=== PATIENT | male | born 1950 | race Caucasian/White ===

== ENCOUNTER 2020-01-06 10:25 | Outpatient (REF) | payer OTHER, SELFPAY ==
[2020-01-06 21:22] LABS: Anion Gap 9.9 mmol/L (3-11); BUN 22 mg/dL (7-18); CO2 23.1 mmol/L (21.0-32.0); CREATININE 1.09 mg/dL (0.70-1.30); Calcium 9.1 mg/dL (8.5-10.1); Calculated LDL 160 mg/dL (<100); Chloride 106 mmol/L (98-107); Cholesterol 222 mg/dL (<200); Glucose 102 mg/dL (74-106); HDL Cholesterol 41 mg/dL (40-60); Potassium 4.3 mmol/L (3.5-5.1); Sodium 139 mmol/L (136-145); Triglyceride 107 mg/dL (<150)
== END 2020-01-06 10:45 ==
LOC: NCHCN 10:25
PROVIDERS: PCP Family Medicine; Visit Provider Nurse Practitioner Family
DX: E78.5 Hyperlipidemia, unspecified (principal); R73.9 Hyperglycemia, unspecified
CPT/HCPCS: 80048; 80061

== ENCOUNTER 2021-01-11 13:54 | Outpatient (REF) | payer OTHER, SELFPAY ==
[2021-01-11 14:54] LABS: ALT 25 U/L (16-63); AST 13 U/L (15-37); Albumin 3.5 g/dL (3.4-5.0); Alkaline Phosphatase 54 U/L (46-116); Anion Gap 7.2 mmol/L (3-11); BUN 21 mg/dL (7-18); Bilirubin, Total 0.3 mg/dL (0.2-1.0); CO2 27.8 mmol/L (21.0-32.0); CREATININE 1.2 mg/dL (0.70-1.30); Calcium 8.9 mg/dL (8.5-10.1); Chloride 108 mmol/L (98-107); Estimated GFR 59.68 (mL/min/1.73m2); Glucose 108 mg/dL (74-106); Potassium 4.3 mmol/L (3.5-5.1); Sodium 143 mmol/L (136-145); Total Protein 6.4 g/dL (6.4-8.2)
[2021-01-12 10:30] LABS: Lyme Ab w Rflx to Lyme Confirm Negative (Negative)
[2021-01-13 00:18] LABS: Anaplasma phagocytophilum Negative (Negative); B. miyamotoi PCR Negative (Negative); Babesia divergens/MO-1 Negative (Negative); Babesia duncani Negative (Negative); Babesia microti Negative (Negative); Ehrlichia chaffeensis Negative (Negative); Ehrlichia ewingii/canis Negative (Negative); Ehrlichia muris eauclairensis Negative (Negative)
== END 2021-01-11 13:55 | disposition home or self-care (01) ==
LOC: NCHCN 13:54
PROVIDERS: PCP Family Medicine; Visit Provider Nurse Practitioner Family
DX: R97.20 Elevated prostate specific antigen [PSA] (principal); R73.03 Prediabetes; R00.1 Bradycardia, unspecified
CPT/HCPCS: 80053; 84153; 87798; 86618

== ENCOUNTER 2021-04-15 10:09 | Outpatient (REF) | payer OTHER, SELFPAY ==
[2021-04-15 22:24] LABS: PSA, Diagnostic 7.3 ng/mL (0.0-6.5)
== END 2021-04-15 10:10 | disposition home or self-care (01) ==
LOC: LBN 10:09
PROVIDERS: PCP Family Medicine; Visit Provider Urology
DX: R97.20 Elevated prostate specific antigen [PSA] (principal)
CPT/HCPCS: 84153

== ENCOUNTER 2021-09-30 09:53 | Outpatient (REF) | payer OTHER, SELFPAY ==
[2021-10-03 09:41] LABS: PSA, Diagnostic 6.7 ng/mL (<=6.5)
== END 2021-09-30 09:54 | disposition home or self-care (01) ==
LOC: LBN 09:53
PROVIDERS: PCP Family Medicine; Visit Provider Urology
DX: R97.20 Elevated prostate specific antigen [PSA] (principal)
CPT/HCPCS: 84153

== ENCOUNTER 2022-04-06 08:11 | Outpatient (REF) | payer OTHER, SELFPAY ==
[2022-04-07 13:50] LABS: PSA, Diagnostic 6.4 ng/mL (<=6.5)
== END 2022-04-06 08:12 | disposition home or self-care (01) ==
LOC: LBN 08:11
PROVIDERS: PCP Family Medicine; Visit Provider Urology
DX: R97.20 Elevated prostate specific antigen [PSA] (principal)
CPT/HCPCS: 84153

== ENCOUNTER 2022-09-14 11:18 | Outpatient (REF) | payer OTHER, SELFPAY ==
[2022-09-14 17:30] LABS: ALT 42 U/L (16-63); AST 23 U/L (15-37); Albumin 3.8 g/dL (3.4-5.0); Alkaline Phosphatase 61 U/L (46-116); Anion Gap 3.9 mmol/L (3-11); BUN 25 mg/dL (7-18); Bilirubin, Total 0.4 mg/dL (0.2-1.0); CO2 29.1 mmol/L (21.0-32.0); CREATININE 1.3 mg/dL (0.70-1.30); Calcium 9.8 mg/dL (8.5-10.1); Calculated LDL 98 mg/dL (<100); Chloride 106 mmol/L (98-107); Cholesterol 166 mg/dL (<200); Estimated GFR 58.01 (mL/min/1.73m2); Glucose 105 mg/dL (74-106); HDL Cholesterol 56 mg/dL (40-60); Potassium 4.5 mmol/L (3.5-5.1); Sodium 139 mmol/L (136-145); Triglyceride 63 mg/dL (<150)
[2022-09-15 20:52] LABS: PSA, Screening 5.4 ng/mL (<=6.5)
== END 2022-09-14 11:19 | disposition home or self-care (01) ==
LOC: NCHCN 11:18
PROVIDERS: PCP Family Medicine; Visit Provider Nurse Practitioner Family
DX: E78.5 Hyperlipidemia, unspecified (principal); R73.03 Prediabetes; N40.1 Benign prostatic hyperplasia with lower urinary tract symptoms; Z12.5 Encounter for screening for malignant neoplasm of prostate
CPT/HCPCS: 80053; 80061; 84153; 83036

== ENCOUNTER 2023-03-23 16:12 | Outpatient (REF) | payer OTHER, SELFPAY ==
[2023-03-23 23:19] LABS: PSA, Diagnostic 6.2 ng/mL (<=6.5)
== END 2023-03-23 16:13 | disposition home or self-care (01) ==
LOC: LBN 16:12
PROVIDERS: PCP Family Medicine; Visit Provider Urology
DX: R97.20 Elevated prostate specific antigen [PSA] (principal)
CPT/HCPCS: 84153

== ENCOUNTER 2023-09-11 07:57 | Outpatient (REF) | payer OTHER, SELFPAY ==
[2023-09-11 16:12] LABS: Anion Gap 7.2 mmol/L (3-11); BUN 22 mg/dL (7-18); CO2 27.8 mmol/L (21.0-32.0); CREATININE 1.1 mg/dL (0.70-1.30); Calcium 10.1 mg/dL (8.5-10.1); Calculated LDL 100 mg/dL (<100); Chloride 105 mmol/L (98-107); Cholesterol 169 mg/dL (<200); Estimated GFR 70.44 (mL/min/1.73m2); Glucose 119 mg/dL (74-106); HDL Cholesterol 58 mg/dL (40-60); Potassium 4.2 mmol/L (3.5-5.1); Sodium 140 mmol/L (136-145); Triglyceride 59 mg/dL (<150)
== END 2023-09-11 07:58 | disposition home or self-care (01) ==
LOC: NCHCN 07:57
PROVIDERS: PCP Family Medicine; Visit Provider Nurse Practitioner Family
DX: E78.5 Hyperlipidemia, unspecified (principal); R73.03 Prediabetes
CPT/HCPCS: 80048; 80061; 83036

== ENCOUNTER 2023-10-29 15:20 | Outpatient (REF) | payer OTHER, SELFPAY | END 2023-10-29 15:21 | disposition home or self-care (01) | LOC: NCHCN 15:20 | PROVIDERS: Urology; PCP Family Medicine; Visit Provider Nurse Practitioner Family | DX: R97.20 Elevated prostate specific antigen [PSA] (principal) | CPT/HCPCS: 84153 ==

== ENCOUNTER 2023-11-14 18:37 | Outpatient (REF) | payer OTHER, SELFPAY | END 2023-11-14 18:38 | disposition home or self-care (01) | LOC: NCHCN 18:37 | PROVIDERS: PCP Family Medicine; Visit Provider Physician Assistant | DX: L02.212 Cutaneous abscess of back [any part, except buttock and flank] (principal) | CPT/HCPCS: 87077; 87070; 87186; 87205 ==

== ENCOUNTER 2023-12-17 18:13 | Outpatient (REF) | payer OTHER, SELFPAY ==
[2023-12-17 16:47] LABS: Hemoglobin A1C 5.9 % (<5.7)
[2023-12-17 16:52] LABS: Calculated LDL 88 mg/dL (<100); Cholesterol 159 mg/dL (<200); HDL Cholesterol 60 mg/dL (40-60); Triglyceride 57 mg/dL (<150)
[2023-12-17 23:18] LABS: PSA, Diagnostic 7.2 ng/mL (<=6.5)
== END 2023-12-17 18:14 | disposition home or self-care (01) ==
LOC: NCHCN 18:13
PROVIDERS: PCP Family Medicine; Visit Provider Urology
DX: E78.5 Hyperlipidemia, unspecified (principal); R73.03 Prediabetes; R97.20 Elevated prostate specific antigen [PSA]
CPT/HCPCS: 80061; 83036; 84153

== ENCOUNTER 2024-03-19 15:05 | Outpatient (REF) | payer OTHER, SELFPAY ==
[2024-03-20 11:25] LABS: PSA, Diagnostic 6.5 ng/mL (<=6.5)
== END 2024-03-19 15:06 | disposition home or self-care (01) ==
LOC: LBN 15:05
PROVIDERS: PCP Family Medicine; Visit Provider Urology
DX: R97.20 Elevated prostate specific antigen [PSA] (principal)
CPT/HCPCS: 84153

== ENCOUNTER 2024-08-13 07:46 | Outpatient (REF) | payer OTHER, SELFPAY ==
[2024-08-13 23:14] LABS: PSA, Diagnostic 6.7 ng/mL (<=6.5)
== END 2024-08-13 07:47 | disposition home or self-care (01) ==
LOC: LBN 07:46
PROVIDERS: PCP Family Medicine; Visit Provider Urology
DX: R97.20 Elevated prostate specific antigen [PSA] (principal)
CPT/HCPCS: 84153

== ENCOUNTER 2024-08-18 12:32 | Outpatient (REF) | payer OTHER, SELFPAY ==
[2024-08-18 15:28] LABS: HCT 47.2 % (40.0-50.0); HGB 15.8 g/dL (13.5-17.5); MCHC 33.5 % (32.0-36.0); MCV 93 fL (80-95); MPV 10.2 fL (8.0-11.0); Platelet Count 210 10^3/uL (130-400); RDW 12.3 % (11.8-14.1); RDW-SD 42.4 fL; WBC 6.69 10^3/uL (4.4-10.8)
[2024-08-18 16:11] LABS: ALT 27 U/L (16-63); AST 19 U/L (15-37); Albumin 3.8 g/dL (3.4-5.0); Alkaline Phosphatase 74 U/L (46-116); Anion Gap 8.3 mmol/L (3-11); BUN 13 mg/dL (7-18); Bilirubin, Total 0.51 mg/dL (0.2-1.0); CO2 28.7 mmol/L (21.0-32.0); CREATININE 1.3 mg/dL (0.70-1.30); Calcium 10.6 mg/dL (8.5-10.1); Calculated LDL 85 mg/dL (<100); Chloride 107 mmol/L (98-107); Cholesterol 167 mg/dL (<200); Estimated GFR 57.29 (mL/min/1.73m2); Glucose 124 mg/dL (74-106); HDL Cholesterol 66 mg/dL (>or=40); Potassium 4.5 mmol/L (3.5-5.1); Sodium 144 mmol/L (136-145); Total Protein 7.4 g/dL (6.4-8.2); Triglyceride 82 mg/dL (<150)
[2024-08-18 16:16] LABS: Hemoglobin A1C 5.8 % (<5.7)
== END 2024-08-18 12:33 | disposition home or self-care (01) ==
LOC: NCHCN 12:32
PROVIDERS: PCP Family Medicine; Visit Provider Nurse Practitioner Family
DX: R03.0 Elevated blood-pressure reading, without diagnosis of hypertension (principal); R73.03 Prediabetes; E78.5 Hyperlipidemia, unspecified
CPT/HCPCS: 80053; 80061; 85027; 83036

== ENCOUNTER 2024-11-20 12:47 | Outpatient (REF) | payer OTHER, SELFPAY ==
[2024-11-20 16:03] LABS: ALT 31 U/L (16-63); AST 18 U/L (15-37); Albumin 3.6 g/dL (3.4-5.0); Alkaline Phosphatase 74 U/L (46-116); Anion Gap 8.5 mmol/L (3-11); BUN 19 mg/dL (7-18); Bilirubin, Total 0.6 mg/dL (0.2-1.0); CO2 28.5 mmol/L (21.0-32.0); CREATININE 1.3 mg/dL (0.70-1.30); Calcium 9.6 mg/dL (8.5-10.1); Chloride 103 mmol/L (98-107); Estimated GFR 57.29 (mL/min/1.73m2); Glucose 117 mg/dL (74-106); Potassium 4.3 mmol/L (3.5-5.1); Sodium 140 mmol/L (136-145); Total Protein 6.9 g/dL (6.4-8.2)
== END 2024-11-20 12:48 | disposition home or self-care (01) ==
LOC: NCHCN 12:47
PROVIDERS: PCP Family Medicine; Visit Provider Nurse Practitioner Family
DX: R03.0 Elevated blood-pressure reading, without diagnosis of hypertension (principal)
CPT/HCPCS: 80053

== ENCOUNTER 2025-03-02 14:41 | Outpatient (REF) | payer OTHER, SELFPAY ==
[2025-03-02 15:37] LABS: COMMENT (LAB VIEW ONLY) 66.24 mg/dL; Microalb ug/mg Crea 44.5 ug/mg Cr
== END 2025-03-02 14:42 | disposition home or self-care (01) ==
LOC: NCHCN 14:41
PROVIDERS: PCP Family Medicine; Visit Provider Nurse Practitioner Family
DX: I10 Essential (primary) hypertension (principal)
CPT/HCPCS: 82043; 82570